=== PATIENT | female | born 1965 | race Caucasian/White ===

== ENCOUNTER → 2018-06-15 09:00 | Outpatient (CLI) | payer OTHER, SELFPAY | PROVIDERS: PCP Family Medicine; Visit Provider Internal Medicine Interventional Cardiology | DX: R55 Syncope and collapse (principal); R00.0 Tachycardia, unspecified | CPT/HCPCS: 93228 ==

== ENCOUNTER → 2018-07-29 13:55 | Outpatient (BNVA) | payer OTHER, SELFPAY | PROVIDERS: PCP Family Medicine; Visit Provider Nurse Practitioner Adult Health | DX: G56.01 Carpal tunnel syndrome, right upper limb (principal); E11.9 Type 2 diabetes mellitus without complications | CPT/HCPCS: 95908; 99214 ==

== ENCOUNTER → 2018-07-30 10:48 | Outpatient (BNVA) | payer OTHER, SELFPAY | PROVIDERS: Visit Provider Psychiatry & Neurology Neurology | DX: R69 Illness, unspecified (principal) ==

== ENCOUNTER → 2018-08-03 13:14 | Outpatient (BNVA) | payer OTHER, SELFPAY | PROVIDERS: PCP Family Medicine; Referring Provider Family Medicine; Visit Provider Student in an Organized Health Care Education/Training Program | DX: M25.531 Pain in right wrist (principal); G56.01 Carpal tunnel syndrome, right upper limb | CPT/HCPCS: 99213; L3908 ==

== ENCOUNTER 2018-09-08 11:29 | Day surgery (SDC) | payer OTHER, SELFPAY ==
[2018-09-08 11:53] VITALS: BP 133/74; PULSE 99; RESP 20; TEMP 36.9; O2SAT 96
--- NOTE | 2018-09-08 11:53 | HOME_ITS ---
Home Ventilator Equipment Home care company [facility] Reason: Obstructive Sleep Apnea Make: Respironics Model: REMStar Mask type: Face mask Mask size: Medium Mode: BiPAP Settings: max/min 25/13 PS 4.0 Oxygen bleed in (lpm): 0 Condition: Good Date last checked: 09/08/18 Year of last sleep study: Compliance Daily Comments:
[2018-09-08] MEDS: Lactated Ringers 1,000 ML 80 ML IV (12:20)
[2018-09-08] MEDS: Lidocaine 1% Pres-Free 5 ML VIAL (12:53)
--- NOTE | 2018-09-08 12:59 | W.PM.DSUDISC ---
Discharge Plan Disposition Patient Disposition: HOME Condition: Good Discharge Details Attending Provider: Abdi Noble Primary Care Provider: Stephanie Romero Home Meds and New Rx's Prescriptions: New ibuprofen 600 mg tablet 600 mg PO TID PRNQty: 30 RF: 3 acetaminophen 500 mg capsule 1,000 mg PO Q8H PRN (Reason: pain) Qty: 90 RF: 0 hydrocodone-acetaminophen 5-325 mg tablet 1 tab PO Q6H PRN (Reason: pain) Qty: 4 RF: 0 Continue calcium carbonate-vitamin D3 1 EACH tablet 1 ea PO DAILY RF: 0 citalopram 20 MG tablet 20 mg PO HS RF: 0 topiramate [Topamax] 100 MG tablet 100 mg PO HS Qty: 90 RF: 3 esomeprazole magnesium [Nexium] 20 MG capsule,delayed release(DR/EC) 20 mg PO HS RF: 0 Discharge Instructions Stand Alone Forms: Real Neves Tunnel Release, Ran Bergman (DSU) Equipment/Supplies: Sling Activity:: Elevate Remove Dressings/Wound Care:: 48 hours Shower/Bathe:: 48 hours Diet:: As Tolerated Discharge Orders Discharge Orders: Discharge Order (Routine); Ordered 09/08/18 Ordered By: Abdi Noble DS: Diagnosis Discharge Diagnosis (1) Right carpal tunnel syndrome: Status: Acute
[2018-09-08 13:28] VITALS: BP 107/63; PULSE 73; RESP 20; TEMP 36.6; O2SAT 96
[2018-09-08] MEDS: HYDROcodone 5/Acetaminophen 325 TAB PO (13:40)
--- NOTE | 2018-09-11 02:55 | W.PM.OP ---
Date of service: 09/08/18 Time of Service: 17:55 Operative Note DATE OF PROCEDURE: 09/08/18 PRE-OP DIAGNOSIS: Right Carpal Tunnel Syndrome POST-OP DIAGNOSIS: same PROCEDURE: Right Endoscopic Carpal Tunnel Release SURGEON: Abdi Noble ANESTHESIA: MAC ESTIMATED BLOOD LOSS: 0 PATHOLOGY: none sent TOURNIQUET TIME: 8 COMPLICATIONS: None Patient was transported to: same day Patient's condition: stable Indications: I have seen Tess in clinic for symptoms of carpal tunnel syndrome. The numbness, tingling, and pain limited function. Clinical exam findings with nerve conduction tests confirmed the diagnosis of carpal tunnel syndrome. Nonoperative measures such as bracing, time, activity modifications had been tried but disability and pain persisted. I discussed carpal tunnel release with the patient. I reviewed the risks of the procedure to include, but not limited to, bleeding, infection, pain, stiffness, incomplete release, damage to nerves or vessels, persistent numbness, recurrence. Despite these risks, the patient elected to proceed. Findings: There was tightened carpal tunnel. This was dilated and released successfully with the endoscopic with increased space within the tunnel. The antebrachial fascia was released proximally freeing the median nerve at the wrist. Procedure Description: Tess was greeted in the preoperative holding area where the correct side was identified and marked. The consent was reviewed with the patient and signed. The history and physical was updated. All questions were answered. Tess was taken back to the operating room. The patient was placed into the supine position on the operating room table with the right arm on an arm board. A nonsterile tourniquet was placed high onto the arm. All bony prominences were well padded. Prophylactic antibiotics in the form of Cefazolin were administered. The right arm was then prepped with Chloraprep and draped in a standard fashion with stockinette and extremity drape. A timeout to confirm correct identity, side and site, procedure, allergies, anesthesia, and medical concerns was performed. The surgical site was marked in the volar wrist creases in line with the radial border of the fourth ray. This area was anesthetized with approximately 6cc of 1% Lidocaine. The limb was then exsanguinated with an Esmarch. The skin was incised with a 15 blade, approximately 1cm. The skin only was cut and the deeper tissue was dissected bluntly with a tenotomy scissor, avoiding passing nerve and venous structures. The fascia was penetrated and opened bluntly. A two-prong skin hook was placed under this proximal fascial edge. A series of hamate finders were used to identify and dilate the carpal tunnel. Synovial elevator was used to free synovial attachments to the underside of the transverse carpal ligament. My thumb was kept in the palm to renu the distal extent of the carpal tunnel and correctly position the hand. The Microaire endoscope was inserted without difficulty and without resistance. Excellent visualization showed horizontally running fibers of the transverse carpal ligament (TCL). The distal extent of the TCL was visualized and the end of the scope palpated with the thumb. The blade was elevated and withdrawn from distal to proximal. The TCL was split into two flaps. The endoscope was reinserted to confirm complete release and any remnant ligament was incised. The scope was withdrawn and the proximal aspect of the carpal tunnel was grossly inspected and appeared release with the median nerve visible. The antebrachial fascia at the level of the wrist was then freed from the overlying skin and then the underlying median nerve with blunt dissection. This was transected longitudinally for about 3cm proximal to the wrist incision. The wound was then irrigated with easy flow of irrigant distally and proximally. The incision was closed with a single 4-0 Nylon suture. The wound was dressed with Xeroform, Gauze, Kerlix and Jose. The tourniquet was deflated with the initial dressing and held with some pressure. Blood flow returned easily to all digits with capillary refill less than 2 seconds. The patient tolerated the procedure well and was returned to the Same Day Surgery area in a stable condition suffering no known complication.
== END 2018-09-08 14:58 | disposition home or self-care (01) ==
PROVIDERS: PCP Family Medicine; Visit Provider Student in an Organized Health Care Education/Training Program
PROC: 01N54ZZ Release Median Nerve, Percutaneous Endoscopic Approach (ICD-10-PCS; CPT 29848; principal; 2018-09-08 13:30)
DX: G56.01 Carpal tunnel syndrome, right upper limb (principal)
CPT/HCPCS: 29848; J0690; J2250; L3650

== ENCOUNTER → 2018-09-25 10:27 | Outpatient (BNVA) | payer OTHER, SELFPAY | PROVIDERS: PCP Family Medicine; Referring Provider Family Medicine; Visit Provider Student in an Organized Health Care Education/Training Program | DX: Z47.89 Encounter for other orthopedic aftercare (principal); G56.01 Carpal tunnel syndrome, right upper limb; E11.9 Type 2 diabetes mellitus without complications ==

== ENCOUNTER → 2018-10-30 10:06 | Outpatient (BNVA) | payer OTHER, SELFPAY | PROVIDERS: PCP Family Medicine; Referring Provider Family Medicine; Visit Provider Student in an Organized Health Care Education/Training Program | DX: Z47.89 Encounter for other orthopedic aftercare (principal); G56.01 Carpal tunnel syndrome, right upper limb ==

== ENCOUNTER → 2018-11-19 10:55 | Outpatient (BNVA) | payer OTHER, SELFPAY | PROVIDERS: PCP Family Medicine; Visit Provider Nurse Practitioner Adult Health | DX: G43.009 Migraine without aura, not intractable, without status migrainosus (principal); G43.109 Migraine with aura, not intractable, without status migrainosus; G56.01 Carpal tunnel syndrome, right upper limb | CPT/HCPCS: 99213 ==

== ENCOUNTER 2018-12-11 01:42 | Outpatient (CLI) | payer OTHER, SELFPAY ==
--- NOTE | 2018-12-11 15:11 | DI.MAMMO_ITS ---
SYMPTOM/DIAGNOSIS: SCREENING, Z12.31 MAMMOGRAMS: Mammograms were interpreted according to the usual protocol including computer analysis with CAD system, tomosynthesis and C view imaging. Comparison is made with prior examinations. Breast density, Category A. No suspicious masses or microcalcifications are seen. The nodular density in the upper outer quadrant of the left breast appears stable. Skin and axilla are unremarkable. IMPRESSION: No evidence for malignancy. Yearly mammography is recommended. Category 1. MQSA ASSESSMENT OF FINDINGS: Negative. Category 1. Patient will receive a letter notifying them of these results. BI-RAD category A. The breasts are almost entirely fatty.
== END 2018-12-11 02:02 ==
PROVIDERS: PCP Family Medicine; Visit Provider Family Medicine
DX: Z12.31 Encounter for screening mammogram for malignant neoplasm of breast (principal)
CPT/HCPCS: 77063; 77067

== ENCOUNTER 2019-01-05 08:59 | Day surgery (SDC) | payer OTHER, SELFPAY ==
[2019-01-05 09:19] VITALS: BP 105/62; PULSE 83; RESP 18; TEMP 37; O2SAT 93
[2019-01-05] MEDS: Lactated Ringers 1,000 ML 80 ML IV (09:50)
--- NOTE | 2019-01-05 10:32 | HOME_ITS ---
Home Ventilator Equipment Home care company [employer] Reason: Obstructive Sleep Apnea Make: Respironics Model: REMStar Mask type: Face mask Mask size: Medium Mode: BiPAP Settings: Max/min 25/13 PS 4.0 Oxygen bleed in (lpm): 0 Condition: Good Date last checked: 01/05/19 Year of last sleep study: Compliance Daily Comments:
--- NOTE | 2019-01-05 11:38 | W.PM.DSUDISC ---
Discharge Plan Disposition Patient Disposition: HOME Condition: Good Discharge Details Reason For Visit: R Carpal Tunnel Attending Provider: Abdi Noble Primary Care Provider: Stephanie Romero Home Meds and New Rx's Prescriptions: New hydrocodone-acetaminophen 5-325 mg tablet 1 tab PO Q4H PRN (Reason: pain) Qty: 8 RF: 0 Continued calcium carbonate-vitamin D3 1 EACH tablet 1 ea PO DAILY RF: 0 citalopram 20 MG tablet 20 mg PO HS RF: 0 glyburide 5 mg Tablet 5 mg PO HS RF: 0 pantoprazole [Protonix] 40 mg Tablet,Delayed Release (Dr/Ec) 40 mg PO HS RF: 0 topiramate [Topamax] 50 mg tablet 75 mg PO HS RF: 0 ibuprofen 600 mg tablet 600 mg PO TID PRNQty: 30 RF: 3 acetaminophen 500 mg capsule 1,000 mg PO Q8H PRN (Reason: pain) Qty: 90 RF: 0 Discharge Instructions Additional Instructions: Activity: You should keep the hand elevated as much as possible for the first few days. You may use the other fingers as tolerated but avoid trying to do too much too soon. You may perform light activities with the splint/brace in place. You may remove the brace as desired for comfort. You should not try any lifting or forceful gripping. Dressing/Cast: You may remove your dressings after 48 hours. The wound may then get wet. You should keep the wound covered with a light gauze dressing. Use the brace for comfort and to limit motion for the first week. Medications: - You should take Tylenol and Ibuprofen for baseline pain control. - You have Hydrocodone for breakthrough pain. - You may apply ice over the wrist. Follow-up: 7-10 days Referrals: Abdi Noble MD [ [facility] STAFF PHYSICIAN] - Equipment/Supplies: Brace Activity:: Elevate Remove Dressings/Wound Care:: 48 hours Shower/Bathe:: 48 hours Diet:: As Tolerated Discharge Orders Discharge Orders: Discharge Order (Routine); Ordered 01/05/19 Ordered By: Abid Noble DS: Diagnosis Discharge Diagnosis (1) Right carpal tunnel syndrome: Status: Acute
[2019-01-05] MEDS: HYDROcodone 5/Acetaminophen 325 TAB PO (12:14)
[2019-01-05 12:15] VITALS: BP 105/58; PULSE 74; RESP 18; TEMP 36.4; O2SAT 95
--- NOTE | 2019-01-06 09:14 | ROE_ITS ---
REPORT OF OPERATIVE PROCEDURE DATE OF SURGERY January 05, 2019 PREOPERATIVE DIAGNOSIS Right carpal tunnel syndrome. POSTOPERATIVE DIAGNOSIS Right carpal tunnel syndrome. SURGERY Open carpal tunnel release, right side. SURGEON Abdi Noble M.D. ANESTHESIA General. ESTIMATED BLOOD LOSS Minimal. COMPLICATIONS None. DISPOSITION The patient was awakened from anesthesia and taken to the PACU in stable condition. INDICATION FOR PROCEDURE Araceli is a 53-year-old who I had previously performed an endoscopic carpal tunnel release on the rig ht side. During her postoperative recovery, she never really noticed significant improvements. Some o f the symptoms did seem to get better, but she had persistent numbness, tingling and pain primarily o f the middle finger, but also the ring finger. She had intact sensation although it was still painful and tingling. We continued to give this some time, but she had no significant improvements. The symp toms were exacerbated with Tinel's and Phalen's at the level of the carpal tunnel. It was therefore d etermined that there was either likely nerve damage or an incomplete release of the initial procedure and therefore I recommended a revision surgery, this time being open. I discussed the risks of the procedure, to include bleeding, infection, pain, stiffness, damage to ne rves and vessels, continued symptoms. Despite these risks, she elected to proceed. PROCEDURE DESCRIPTION Araceli was greeted in the preoperative holding area. Her identity was confirmed and the correct side was identified and marked. The consent was reviewed with the patient and signed. The history and phys ical was updated. She was then taken back to the Operating Room. She was placed in the supine position. All bony promi nences were well padded. The right arm was placed onto the arm table. A nonsterile tourniquet was chris belinda high up on the right side. Prophylactic antibiotics in the form of cefazolin were given. A timeou t was performed for safe surgery. MAC anesthetic was started. The surgical field was anesthetized wit h 1% lidocaine. Unfortunately, she would not stay still during any part of the case. Anesthesia provi ezraKatya CRNA made the decision to make her a general anesthetic given her inability to l ay still. After the anesthetic had set up on the hand, the limb was exsanguinated and the tourniquet was inflated to 275 mmHg, where it stayed for 16 minutes. A longitudinal incision was made within the line of the thenar crease at the radial border of the fourth ray. This was a 2.5 cm incision made wi thin the base of the palm. It was focused slightly more distally given the concern for possible incom plete release of the distal extent of the of the transverse carpal ligament. The tissue was incised s harply through the palmar fascia. There was a significant amount of muscular seen in this area. It wa s swept off of the transverse carpal ligament. The transverse carpal ligament was identified. There w as no significant break in the transverse carpal ligament. It made be thinner than expected, but it w as still quite tight. A freer was able to be inserted underneath the transverse carpal ligament and t he transverse carpal ligament was incised completely from distal to proximal. The far extent both dis tally and proximally were investigated and any tight bands were released. The median nerve was visibl e. There was no significant hyperemia or signs of contusion to the nerve. The nerve was visible intac t. I did not follow it out to the complete branches of the digital nerves, but the branch to the comm on digital nerve branch to the ring finger and middle finger was easily identifiable and showed no si gns of damage. I did not cross the flexion crease, but I was able to elevate soft tissue and release the remainder of the transverse carpal ligament so that I was able to place a Pray easily on top of the median nerve and pass it both proximally and distally. There were no other signs of compression o n the median nerve. The wound was then thoroughly irrigated. The tourniquet was released. There was n o active bleeding to suggest arterial injury. The skin was then closed with #4-0 Nylon. The wound was dressed with Xeroform, 4x4s, Confirm and Jose wrap. She was placed into a removable wrist splint. At the end of the case, all counts were correct.
== END 2019-01-05 13:15 | disposition home or self-care (01) ==
PROVIDERS: PCP Family Medicine; Visit Provider Student in an Organized Health Care Education/Training Program
PROC: (CPT 64721; principal; 2019-01-05 10:45)
DX: G56.01 Carpal tunnel syndrome, right upper limb (principal)
CPT/HCPCS: 64721; J0690; J1885; J2250; J2405; L3908

== ENCOUNTER → 2019-01-13 11:03 | Outpatient (BNVA) | payer OTHER, SELFPAY | PROVIDERS: PCP Family Medicine; Referring Provider Family Medicine; Visit Provider Student in an Organized Health Care Education/Training Program | DX: G56.01 Carpal tunnel syndrome, right upper limb (principal); Z47.89 Encounter for other orthopedic aftercare ==

== ENCOUNTER → 2019-02-05 10:18 | Outpatient (BNVA) | payer OTHER, SELFPAY | PROVIDERS: PCP Family Medicine; Referring Provider Family Medicine; Visit Provider Student in an Organized Health Care Education/Training Program | DX: Z47.89 Encounter for other orthopedic aftercare (principal); G56.01 Carpal tunnel syndrome, right upper limb ==

== ENCOUNTER → 2019-05-10 08:33 | Outpatient (BNVA) | payer OTHER, SELFPAY | PROVIDERS: PCP Family Medicine; Visit Provider Nurse Practitioner Adult Health | DX: G43.709 Chronic migraine without aura, not intractable, without status migrainosus (principal); G43.109 Migraine with aura, not intractable, without status migrainosus; E11.9 Type 2 diabetes mellitus without complications; Z79.84 Long term (current) use of oral hypoglycemic drugs | CPT/HCPCS: 99213 ==

== ENCOUNTER → 2019-08-19 15:12 | Outpatient (BNVA) | payer OTHER, SELFPAY | PROVIDERS: PCP Family Medicine; Referring Provider Family Medicine; Visit Provider Nurse Practitioner Adult Health | DX: G43.109 Migraine with aura, not intractable, without status migrainosus (principal); G43.009 Migraine without aura, not intractable, without status migrainosus | CPT/HCPCS: 99213 ==

== ENCOUNTER → 2019-09-16 14:42 | Outpatient (BNVA) | payer OTHER, SELFPAY | PROVIDERS: PCP Family Medicine; Referring Provider Family Medicine; Visit Provider Nurse Practitioner Adult Health | DX: G43.709 Chronic migraine without aura, not intractable, without status migrainosus (principal); G43.109 Migraine with aura, not intractable, without status migrainosus | CPT/HCPCS: 99212; 99241; 96372 ==

== ENCOUNTER → 2019-09-29 13:20 | Outpatient (BNVA) | payer OTHER, SELFPAY | PROVIDERS: PCP Family Medicine; Referring Provider Family Medicine; Visit Provider Nurse Practitioner Adult Health | DX: G43.901 Migraine, unspecified, not intractable, with status migrainosus (principal); L29.9 Pruritus, unspecified; E11.9 Type 2 diabetes mellitus without complications | CPT/HCPCS: 99213; J1885; J2550; 96372 ==

== ENCOUNTER → 2019-12-02 14:47 | Outpatient (BNVA) | payer OTHER, SELFPAY | PROVIDERS: PCP Family Medicine; Referring Provider Family Medicine; Visit Provider Nurse Practitioner Adult Health | DX: G43.109 Migraine with aura, not intractable, without status migrainosus (principal); G43.709 Chronic migraine without aura, not intractable, without status migrainosus | CPT/HCPCS: 99213 ==

== ENCOUNTER 2019-12-03 08:39 | Outpatient (REF) | payer OTHER, SELFPAY ==
[2019-12-03 12:28] LABS: HCT 40.6 % (36.0-46.0); HGB 13.1 g/dL (12.0-15.5); Mean Corp. HGB Concentration 32.3 g/dL (32.0-36.0); Mean Corpuscular Hemoglobin 30.8 pg (27.0-33.0); Mean Corpuscular Volume 95.3 fL (80-95); Mean Platelet Volume 10.8 fL (8.0-11.0); Platelet Count 310 x1000/uL (130-400); RBC 4.26 m/cumm (4.00-5.20); RBC Distribution Width 13.5 % (11.7-14.6); White Blood Cell Count 8.93 k/cumm (4.4-10.8)
[2019-12-03 12:51] LABS: ALT 24 U/L (14-59); AST 14 U/L (15-37); Albumin 3.4 g/dL (3.4-5.0); Alkaline Phosphatase 84 U/L (46-116); Anion Gap 10.1 mmol/L (3-11); BUN 16 mg/dL (7-18); Bilirubin, Total 0.4 mg/dL (0.2-1.0); CO2 26.9 mmol/L (21.0-32.0); CREATININE 1.06 mg/dL (0.55-1.02); Calcium 8.7 mg/dL (8.5-10.1); Calculated LDL 93 mg/dL (<100); Chloride 108 mmol/L (98-107); Cholesterol 149 mg/dL (<200); Estimated GFR 53.62 (mL/min/1.73m2); Glucose 221 mg/dL (74-106); HDL Cholesterol 41 mg/dL (40-60); Potassium 4.4 mmol/L (3.5-5.1); Sodium 145 mmol/L (136-145); Total Protein 6.6 g/dL (6.4-8.2); Triglyceride 75 mg/dL (<150)
[2019-12-03 12:52] LABS: Hemoglobin A1C 7.4 % (3.8-5.6)
== END 2019-12-03 08:59 ==
LOC: NCHCN 08:39
PROVIDERS: PCP Family Medicine; Visit Provider Family Medicine
DX: Z00.00 Encounter for general adult medical examination without abnormal findings (principal); E11.9 Type 2 diabetes mellitus without complications; N28.9 Disorder of kidney and ureter, unspecified
CPT/HCPCS: 80053; 80061; 85027; 83036

== ENCOUNTER → 2020-06-08 15:04 | Outpatient (BNVA) | payer OTHER, SELFPAY | PROVIDERS: PCP Family Medicine; Referring Provider Family Medicine; Visit Provider Nurse Practitioner Adult Health | DX: G43.709 Chronic migraine without aura, not intractable, without status migrainosus (principal); G43.109 Migraine with aura, not intractable, without status migrainosus; E11.9 Type 2 diabetes mellitus without complications | CPT/HCPCS: 99213 ==

== ENCOUNTER 2021-01-24 02:19 | Outpatient (CLI) | payer OTHER, SELFPAY ==
--- NOTE | 2021-01-24 | DI.US_ITS ---
EXAM: US ABDOMEN CLINICAL HISTORY: RUQ ABD PAIN,R10.11 TECHNIQUE: Ultrasound of complete upper abdomen performed using standard protocol. COMPARISON: US PELVIS TRANSVAG from 07/08/2014 FINDINGS: There is no ascites evident. LIVER: Liver is enlarged and hyperechoic, indicating steatosis. There are no discrete focal hepatic lesions evident on these images. GALLBLADDER/BILIARY: There are no gallstones. No gallbladder wall edema nor pericholecystic fluid. The common hepatic duct isnot dilated, measuring 5mm at the level of alejandro hepatis. PANCREAS: There is no evidence of pancreatic mass nor dilatation of the pancreatic duct. SPLEEN: The spleen is not enlarged and there are no intrasplenic lesions evident. KIDNEYS:Kidneys exhibit normal size with no evidence of solid mass, calculus, nor hydronephrosis. No cortical cysts evident. ABDOMINAL AORTA: Not well visualized IVC: Not well visualized. IMPRESSION: 1. No evidence of cholelithiasis nor dilatation of the biliary tree. 2. Hepatomegaly. Also hepatic steatosis. 3. There is no ascites. Aorta and IVC were apparently difficult to visualize on this study. DATA REPOSITORY:
--- NOTE | 2021-01-24 08:42 | DI.MAMMO_ITS ---
EXAM: MG MAMMO SCREENING CLINICAL HISTORY: SCREENING,Z12.31. TECHNIQUE: Bilateral full field digital CC and MLO mammographic images were obtained with 3D tomosyn thesis and utilizing computer aided detection (CAD). COMPARISON: Prior mammograms dating back to 2011, the most recent being November 2008. FINDINGS: There are no CAD designations. There are no new spiculated masses nor malignant appearing microcalcification groups. There is no significant architectural distortion nor skin thickening-retraction. IMPRESSION: No radiographic evidence of malignancy. BI-RADS Category 1 - Negative Breast Density - Category A - Almost entirely fatty Breast density Category C or D implies that the patient has dense breast tissue. Dense breast tissue can make it harder to find cancer on a mammogram. Dense breast tissue is also associated with an incr eased risk of breast cancer. This information about the result of the mammogram report was provided to the patient to raise their awareness. Use this report when you speak with the patient about their risks for breast cancer, which includes their family history. At that time, you may recommend additional screening tests (Ultrasoun d or MRI) as these tests may add significant information. A negative radiographic report should not delay biopsy if a dominant or clinically suspicious mass is present. Up to ten percent of cancers are not identified on mammography. A negative report may reinforce clinical impression. Adenosis and dense breasts may obscure an underlying neoplasm. False positive reports average 6 to 10%. Patient will receive a letter notifying them of these results.
== END 2021-01-24 02:39 ==
PROVIDERS: PCP Family Medicine; Visit Provider Family Medicine
DX: R10.11 Right upper quadrant pain (principal); Z12.31 Encounter for screening mammogram for malignant neoplasm of breast; R16.0 Hepatomegaly, not elsewhere classified; K76.0 Fatty (change of) liver, not elsewhere classified
CPT/HCPCS: 77063; 77067; 76700

== ENCOUNTER → 2021-06-11 07:40 | Outpatient (BNVA) | payer OTHER, SELFPAY | PROVIDERS: PCP Family Medicine; Referring Provider Family Medicine; Visit Provider Nurse Practitioner Adult Health | DX: G43.109 Migraine with aura, not intractable, without status migrainosus (principal); G43.709 Chronic migraine without aura, not intractable, without status migrainosus | CPT/HCPCS: 99213 ==

== ENCOUNTER → 2021-07-24 07:13 | Outpatient (BNVA) | payer OTHER, SELFPAY | PROVIDERS: PCP Family Medicine; Referring Provider Family Medicine; Visit Provider Nurse Practitioner Adult Health | DX: G43.109 Migraine with aura, not intractable, without status migrainosus (principal); G43.709 Chronic migraine without aura, not intractable, without status migrainosus | CPT/HCPCS: 99213 ==

== ENCOUNTER 2022-03-28 16:02 | Emergency (ER) | payer OTHER, SELFPAY ==
[2022-03-28 16:14] VITALS: BP 126/65; PULSE 93; RESP 18; TEMP 36.4; O2SAT 99
--- NOTE | 2022-03-28 16:15 | DI.RAD_ITS ---
Exam(s) XR CHEST 2V PA LATERAL EXAM: XR CHEST 2V PA LATERAL CLINICAL HISTORY: Chest pain TECHNIQUE: 2D digital imaging was performed of the chest. Two images were obtained. PA and lateral views were obtained. COMPARISON: No exams were available for comparison FINDINGS: MEDIASTINUM: Normal. HEART: Normal. PULMONARY VASCULATURE: Normal. LUNGS: Clear. PLEURAL SPACE: No pleural effusion or pneumothorax. BONE:Within normal limits for the patient's age. OTHER FINDINGS:Normal. IMPRESSION: No acute pulmonary findings. DATA REPOSITORY: RADIATION DOSE DELIVERED:
--- NOTE | 2022-03-28 16:15 | RT.EKG_ITS ---
APPROVED REPORT Exam: Resting ECG Reason for Exam: chest pain Patient Location: E HR:95 bpm ECG Measurements Heart Rate 95 AXIS ME 150 P 73 QRSd 79 QRS 72 QT 338 T 44 QTc 425 Conclusion Sinus rhythm...normal P axis, V-rate 60- 99
[2022-03-28] MEDS: Ondansetron 4 MG/2 ML VIAL IVP (17:30)
[2022-03-28] MEDS: Normal Saline 1,000 ML 150 ML IV (17:32)
[2022-03-28 17:34] LABS: Abs Immature Grans 0.15 10^3/uL (0.0-0.06); Absolute Eosinophil Count 0.18 10^3/uL (0.0-0.7); Absolute Monocyte Count 1.62 10^3/uL (0.1-0.8); Absolute Neutrophil Count 17.85 10^3/uL (1.2-6.7); Basophils % 0.4; Eosinophils % 0.8; HCT 44.4 % (36.0-46.0); HGB 15.1 g/dL (11.2-15.7); Immature Grans % 0.7; Lymphocytes % 11.4; MCH 30.5 pg (27.0-33.0); MCV 90 fL (80-95); MPV 10.6 fL (8.0-11.0); Monocytes % 7.2; Neutrophils % 79.5; Platelet Count 353 10^3/uL (130-400); RBC 4.95 10^6/uL (3.93-5.22); RDW-SD 42.4 fL; WBC 22.45 10^3/uL (4.4-10.8)
[2022-03-28 17:36] LABS: Absolute Basophil Count 0.09 10^3/uL (0.0-0.2); Absolute Lymphocyte Count 2.56 10^3/uL (1.2-3.4)
[2022-03-28 17:47] LABS: ALT 45 U/L (14-59); AST 24 U/L (15-37); Albumin 4.1 g/dL (3.4-5.0); Alkaline Phosphatase 88 U/L (46-116); Anion Gap 9.6 mmol/L (3-11); BUN 16 mg/dL (7-18); Bilirubin, Total 0.5 mg/dL (0.2-1.0); CO2 29.4 mmol/L (21.0-32.0); CREATININE 1.1 mg/dL (0.55-1.02); Chloride 101 mmol/L (98-107); Estimated GFR 51.02 (mL/min/1.73m2); Glucose 116 mg/dL (74-106); Magnesium 1.8 mg/dL (1.8-2.4); PTT Activated 25.4 sec (21.0-27.5); Potassium 3.8 mmol/L (3.5-5.1); Prothrombin Time 10.1 sec (9.3-11.0); Sodium 140 mmol/L (136-145); Total Protein 8.1 g/dL (6.4-8.2); Troponin I < 50 ng/L (<or=60)
[2022-03-28 18:36] LABS: Diff Comment Agrees w/ Instrument; RBC Morphology Normal
[2022-03-28 18:37] LABS: Lipase 179 U/L (73-393)
--- NOTE | 2022-03-28 18:53 | DI.VRAD_ITS ---
PROCEDURE INFORMATION: Exam: XR Chest Exam date and time: 03/28/2022 6:36 PM Age: 56 years old Clinical indication: Pain; Chest pressure; Additional info: Chest pain TECHNIQUE: Imaging protocol: XR of the chest. Views: 2 views. COMPARISON: MRI - L UPPER JOINT WO CONT 01/03/2017 5:49 PM FINDINGS: Lungs: Unremarkable. No consolidation. Pleural spaces: Unremarkable. No pleural effusion. No pneumothorax. Heart/Mediastinum: Unremarkable. No cardiomegaly. Bones/joints: [id number]-[id number] degenerative thoracic spine features. IMPRESSION: 1. No acute findings. 2. Clear lungs and pleural space. 3. Normal heart size and mediastinal contour. 4. Degenerative thoracic spine features Dictated and Authenticated by: Srinivas Plascencia MD. Ordering:DARIN Cordero MD
--- NOTE | 2022-03-28 19:56 | ED.GENADUL_ITS ---
Discharge Plan Disposition Patient Disposition: HOME Condition: Improving Discharge Details Clinical Impression: Nausea & vomiting Primary Care Provider: Stephanie Romero ED Provider: Gil Rivera Home Meds and New Rx's Prescriptions: No Action mecobalamin (vitamin B12) 1,000 mcg tablet,chewable 1,000 mcg PO DAILY Aimovig Autoinjector 140 mg/mL auto-injector 140 mg subcut QMONTH Qty: 1 11RF calcium carbonate-vitamin D3 1 EACH tablet 1 ea PO DAILY citalopram 20 MG tablet 20 mg PO HS prochlorperazine maleate 5 mg tablet See Rx Instructions PO TID PRN (Reason: headaches) Qty: 30 2RF Label Comments: none for a long time Rx Instructions: Take 1-2 tablets every 8 hours as needed for headaches. pantoprazole [Protonix] 40 mg Tablet,Delayed Release (Dr/Ec) 40 mg PO HS glyburide 5 mg tablet 5 mg PO BID Januvia 100 mg tablet 100 mg PO DAILY Discharge Instructions Instructions: Acute Nausea and Vomiting (ED) Additional Instructions: Please drink clear liquids for the next 12 to 24 hours and slowly advance your diet as tolerated by nausea. You may use the provided nausea medication as instructed for any return of your nausea. If you have any new or significant worsening of symptoms please return to the emergency department for reassessment. There is an outpatient order for an ultrasound to further evaluate your abdominal pain. Please need to call the radiology department to arrange your ultrasound tomorrow morning and follow-up in the emergency department after your ultrasound for results and reassessment. Medical Decision Making Patient presenting to the emergency department for chief complaint of nausea vomiting that occurred approximately 1 hour after lunch today. She does state for the past 2 and half weeks she is had malaise and occasional body aches. She did remove some ticks around 2 and half weeks ago as well but denies any rash, joint pain joint swelling. She does state after vomiting she did start having some sternal chest pressure. Patient does have a pertinent past medical history to include diabetes, GERD, migraines, obesity and former smoker. Physical exam shows tenderness to the epigastrium and right upper quadrant otherwise unremarkable exam. We will plan on performing labs and giving patient IV fluids along with some Zofran. We will also give patient GI cocktail due to some perceived or suspected esophagitis. Also given that patient states tick bites we will plan on sending tickborne illness and Lyme panel. Physical exam though shows no carditis, cardiac murmur,rash, or other obvious findings consistent with Lyme disease. Please see physician interpretation for full interpreted the EKG but patient is in sinus rhythm with no acute ischemic findings noted. Review of labs show a leukocytosis that I feel is secondary to vomiting, CMP shows a slight increase of creatinine of 1.1 and glucose of 116 otherwise normal LFTs, lipase is 179, initial troponin is negative. Reassessed patient and she did state some improvement after Zofran and GI cocktail. Given history we will plan on doing delta troponin. Delta troponin is also nondetectable, patient reassessed and states resolution of symptoms. Patient was p.o. challenge and did state that she felt fine drinking water but crackers did slightly upset her stomach. Prior to discharge CT imaging became available and given the right upper quadrant pain we will plan on performing CT imaging. CT imaging shows some nonspecific findings consistent with some enteritis which also may be causing her nausea and vomiting. Otherwise CT showed no acute or surgical findings. We will plan on discharging patient with outpatient ultrasound ordered for further evaluation of gallbladder given that patient did report with further discussion that this is happened a couple times. Also did discuss with patient beginning antibiotics for potential Lyme disease given her malaise and other vague symptoms with recent tick bites. After discussion of this with patient she states that she would prefer to wait for lab testing or for any new or worsening symptoms. Patient to return tomorrow for ultrasound imaging and needs then return to emergency department for reassessment. After discussion of diagnosis and plan of care patient has no further needs, questions, or concerns and states clear understanding to return to the emergency department for any worsening symptoms. Imaging Data Radiologic Study: Imaging: CT Scan Radiologist's impression: IMPRESSION: 1. Minor fatty stranding of the mesenteric root and some scattered subcentimeter lymph nodes. This is nonspecific. This might represent sequela of a mild small bowel enteritis. 2. No acute biliary tract findings. 3. Unremarkable pancreas. 4. Fatty liver change. 5. No acute renal pathology. 6. Previous hysterectomy. 7. No free fluid in the abdomen or pelvis. No free air. Lab Data Lab results reviewed: Yes I reviewed the patient's lab results. HPI General Mode of arrival: ambulatory . Date/Time Provider Initiated Documentation: 03/28/22 16:04 . Limitations to Documentation: no limitations . Information obtained by: patient and RN notes reviewed . History of Present Illness 56 year old F presents to the emergency department with the chief complaint of Acute nausea and vomiting with epigastric and chest pain, described as moderate, with intensity rated at 3. Quality is described as aching, and is localized to the chest and abdomen. Patient reports no radiation. Patient started experiencing this hour(s) (4) and it has been constant. No relieving factors improve symptom(s), No exacerbating factors reported . Patient notes loss of appetite, malaise and nausea/vomiting. Patient did receive the following treatments prior to arrival, none Related Data Home Medications Medication Instructions Recorded Confirmed calcium carbonate 600 mg-vitamin 1 ea PO DAILY 07/13/14 03/28/22 D3 5 mcg (200 unit) tablet citalopram 20 mg tablet 20 mg PO HS 11/11/16 03/28/22 pantoprazole 40 mg tablet,delayed 40 mg PO HS 01/01/19 03/28/22 release (Protonix) prochlorperazine maleate 5 mg See Rx Instructions PO TID PRN 06/12/20 03/28/22 tablet headaches #30 tabs glyburide 5 mg tablet 5 mg PO BID 06/11/21 03/28/22 mecobalamin (vitamin B12) 1,000 1,000 mcg PO DAILY 06/11/21 03/28/22 mcg chewable tablet erenumab-aooe 140 mg/mL 140 mg subcut QMONTH #1 mL 07/24/21 03/28/22 subcutaneous auto-injector (Aimovig Autoinjector) sitagliptin 100 mg tablet (Januvia) 100 mg PO DAILY 03/28/22 03/28/22 Previous Rx's Medication Instructions Recorded prochlorperazine maleate 5 mg See Rx Instructions PO TID PRN 06/12/20 tablet headaches #30 tabs erenumab-aooe 140 mg/mL 140 mg subcut QMONTH #1 mL 07/24/21 subcutaneous auto-injector (Aimovig Autoinjector) Allergies Allergy/AdvReac Type Severity Reaction Status Date / Time Sulfa (Sulfonamide Allergy Severe Anaphylaxsi Unverified 03/28/22 16:24 Antibiotics) s sumatriptan AdvReac Severe Headache Unverified 03/28/22 16:24 ciprofloxacin [From Cipro] AdvReac Intermediate Diarrhea Unverified 03/28/22 16:24 ciprofloxacin HCl AdvReac Intermediate Diarrhea Unverified 03/28/22 16:24 [From Cipro] General Stated Complaint: Chest Pain BRIAN: 2 Review of Systems Constitutional Constitutional: Reports body ache(s), Denies chills, Denies fever(s) and Reports malaise Cardiovascular Cardiovascular: Reports as per HPI, Reports chest pain, Denies chest pain with activity, Denies syncope, Denies irregular heart rhythm, Denies palpitations and Denies dyspnea Respiratory Respiratory: Denies cough, Denies hemoptysis and Denies dyspnea Gastrointestinal Gastrointestinal: Reports abdominal pain, Reports belching, Reports bloating, Reports nausea and Reports vomiting Musculoskeletal Musculoskeletal: Denies arthralgias and Denies joint swelling Integumentary/Breasts Skin/Breast: Denies erythema and Denies rash Neurologic Neurologic: Denies syncope Psychiatric Psychiatric: Denies anxiety Endocrine Endocrine: Denies cold intolerance, Denies heat intolerance and Denies palpitations PFSH All Active Problems (Updated 03/28/22 @ 21:33 by Gil Rivera NP) Nausea & vomiting (Acute) Lymphadenopathy (Acute) Abnormal auditory perception (Acute) Migraine headache with aura (Acute) Headache, chronic migraine without aura (Acute) History of carpal tunnel surgery of right wrist (Acute) DOS: 09/08/18 Dr. 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 Do you feel safe at home: Yes Do you feel safe in your relationship?: Yes Exam Const General: cooperative Orientation: alert, awake and oriented x3 Resp Effort & Inspection: normal respiratory effort and able to speak in complete sentences Auscultation: clear to auscultation bilaterally Cardio Rate: regular rate Rhythm: regular rhythm Heart Sounds: S1 normal and S2 normal GI Inspection: obesity Palpation: soft, not firm, no guarding, no masses, no pulsatile masses, not rigid and tender in the epigastrum and in the RUQ Auscultation: normal bowel sounds Back/Spine/Pelvis Back: no CVA tenderness Skin Rashes: no rashes Neuro General: patient alert, patient awake, patient oriented x3, gait normal and moves all extremities Course Vital Signs Vital signs: Vital Signs Temperature 36.4 C L 03/28/22 16:14 Pulse 93 H 03/28/22 16:14 Respiratory Rate 18 03/28/22 16:14 Blood Pressure 126/65 03/28/22 16:14 Pulse Oximetry 99 03/28/22 16:14 Temperature 36.4 C L 03/28/22 16:14 Temperature Source Skin 03/28/22 16:14 Pulse 93 H 03/28/22 16:14 Respiratory Rate 18 03/28/22 16:14 Respiratory Effort 03/28/22 17:01 Respiratory Depth Normal 03/28/22 17:01 Respiratory Pattern Normal 03/28/22 17:01 Blood Pressure 126/65 03/28/22 16:14 Blood Pressure Position Sitting 03/28/22 16:14 Pulse Oximetry 99 03/28/22 16:14 Oxygen Delivery Method Room Air 03/28/22 16:14 Oxygen Flow Rate 0 03/28/22 16:14 Pain Level 3 03/28/22 16:14 Lab/Test Results Lab/Test Results: Laboratory Tests Range/Units 03/28/22 03/28/22 03/28/22 17:25 17:25 17:25 WBC (4.4-10.8) 10^3/uL 22.45 H RBC (3.93-5.22) 10^6/uL 4.95 Hgb (11.2-15.7) g/dL 15.1 Hct (36.0-46.0) % 44.4 MCV (80-95) fL 90 MCH (27.0-33.0) pg 30.5 MCHC (32.0-36.0) % 34.0 RDW (11.7-14.6) % 13.0 Plt Count (130-400) 10^3/uL 353 MPV (8.0-11.0) fL 10.6 Immature Gran % 0.7 Neutrophils % 79.5 Lymphocytes % 11.4 Monocytes % 7.2 Eosinophils % 0.8 Basophils % 0.4 Nucleated RBC % (0.0-0.3) % 0.0 Absolute Neutrophils (1.2-6.7) 10^3/uL 17.85 H Absolute Lymphocytes (1.2-3.4) 10^3/uL 2.56 Absolute Monocytes (0.1-0.8) 10^3/uL 1.62 H Absolute Eosinophils (0.0-0.7) 10^3/uL 0.18 Absolute Basophils (0.0-0.2) 10^3/uL 0.09 RBC Morphology Normal PT (9.3-11.0) sec 10.1 INR (0.9-1.1) 1.0 APTT (21.0-27.5) sec 25.4 Sodium (136-145) mmol/L 140 Potassium (3.5-5.1) mmol/L 3.8 Chloride (98-107) mmol/L 101 Carbon Dioxide (21.0-32.0) mmol/L 29.4 Anion Gap (3-11) mmol/L 9.6 BUN (7-18) mg/dL 16 Creatinine (0.55-1.02) mg/dL 1.1 H Estimated GFR/1.73 m2 (mL/min/1.73m2) 51.02 Glucose (74-106) mg/dL 116 H Calcium (8.5-10.1) mg/dL 9.0 Magnesium (1.8-2.4) mg/dL 1.8 Total Bilirubin (0.2-1.0) mg/dL 0.5 AST (15-37) U/L 24 ALT (14-59) U/L 45 Alkaline Phosphatase (46-116) U/L 88 Troponin I (<or=60) ng/L < 50 Total Protein (6.4-8.2) g/dL 8.1 Albumin (3.4-5.0) g/dL 4.1 Lipase (73-393) U/L Range/Units 03/28/22 17:25 WBC (4.4-10.8) 10^3/uL RBC (3.93-5.22) 10^6/uL Hgb (11.2-15.7) g/dL Hct (36.0-46.0) % MCV (80-95) fL MCH (27.0-33.0) pg MCHC (32.0-36.0) % RDW (11.7-14.6) % Plt Count (130-400) 10^3/uL MPV (8.0-11.0) fL Immature Gran % Neutrophils % Lymphocytes % Monocytes % Eosinophils % Basophils % Nucleated RBC % (0.0-0.3) % Absolute Neutrophils (1.2-6.7) 10^3/uL Absolute Lymphocytes (1.2-3.4) 10^3/uL Absolute Monocytes (0.1-0.8) 10^3/uL Absolute Eosinophils (0.0-0.7) 10^3/uL Absolute Basophils (0.0-0.2) 10^3/uL RBC Morphology PT (9.3-11.0) sec INR (0.9-1.1) APTT (21.0-27.5) sec Sodium (136-145) mmol/L Potassium (3.5-5.1) mmol/L Chloride (98-107) mmol/L Carbon Dioxide (21.0-32.0) mmol/L Anion Gap (3-11) mmol/L BUN (7-18) mg/dL Creatinine (0.55-1.02) mg/dL Estimated GFR/1.73 m2 (mL/min/1.73m2) Glucose (74-106) mg/dL Calcium (8.5-10.1) mg/dL Magnesium (1.8-2.4) mg/dL Total Bilirubin (0.2-1.0) mg/dL AST (15-37) U/L ALT (14-59) U/L Alkaline Phosphatase (46-116) U/L Troponin I (<or=60) ng/L Total Protein (6.4-8.2) g/dL Albumin (3.4-5.0) g/dL Lipase (73-393) U/L 179
--- NOTE | 2022-03-28 20:30 | DI.CT_ITS ---
Exam(s) CT ABDOMEN PELVIS WO EXAM: CT ABDOMEN PELVIS WO CLINICAL HISTORY: RUQ pain. TECHNIQUE: Imaging Protocol: Axial computed tomography images with coronal and sagittal reformatted images were created and reviewed. COMPARISON: No exams were available for comparison FINDINGS: ABDOMEN: Lung Bases: Normal where visualized. Liver: There is diffuse fatty infiltration of the liver. The liver measures 20 cm long. No measurab le mass. Gallbladder and biliary tract: No radiodense calculus or biliary ductal dilation. Pancreas: Normal density, no abnormal calcifications or inflammatory process. Spleen: Normal. Kidneys: Normal size, contour and axis.No radiodense stones or obstructive uropathy. No masses seen. Adrenal glands: No mass is seen. Lymph nodes: Within normal limits. Abdominal Aorta: Abdominal portion non-dilated. Atherosclerosis is present. PELVIS: Bladder:Symmetric distention, no gross wall thickening. Bowel: No obstruction or bowel wall thickening. No evidence of appendicitis. Peritoneal cavity: No ascites, collection or mesenteric inflammatory response. No free air. Reproductive organs: Status post hysterectomy. Bones: Within normal limits. Soft Tissues: Within normal limits. IMPRESSION: 1. No acute abdominal pelvic process. 2. Hepatomegaly and hepatic steatosis. RADIATION DOSE DELIVERED: 1,357.7mGy.cm Total DLP DATA REPOSITORY: All CT scans at this facility are submitted to the National Radiology Data Registry (NRDR) Dose Index Registry (DIR) with the [employer] (ACR). RADIATION OPTIMIZATION: All CT scans at this facility use at least one of these dose optimization te chniques: automated exposure control; mA and/or kV adjustment per patient size (includes targeted exa ms where dose is matched to clinical indication); or iterative reconstruction.
[2022-03-28 20:44] LABS: Troponin I < 50 ng/L (<or=60)
--- NOTE | 2022-03-28 21:29 | DI.VRAD_ITS ---
PROCEDURE INFORMATION: Exam: CT Abdomen And Pelvis Without Contrast Exam date and time: 03/28/2022 8:47 PM Age: 56 years old Clinical indication: Abdominal pain; Localized; Right upper quadrant (ruq); Prior surgery; Surgery date: 6+ months; Surgery type: Hysterectomy; Additional info: Ruq pain TECHNIQUE: Imaging protocol: Computed tomography of the abdomen and pelvis without contrast. Radiation optimization: All CT scans at this facility use at least one of these dose optimization techniques: automated exposure control; mA and/or kV adjustment per patient size (includes targeted exams where dose is matched to clinical indication); or iterative reconstruction. COMPARISON: US ABDOMEN 01/24/2021 8:15 AM FINDINGS: Lungs: Lung bases are clear. Pleural spaces: No pleural effusion. Heart: Normal heart size. No pericardial effusion. No coronary artery atherosclerotic calcium evident. Liver: Moderate fatty liver infiltration. No focal hepatic disease. Gallbladder and bile ducts: No gallstones. No gallbladder wall thickening or biliary dilatation. Pancreas: The pancreas is normal in contour and attenuation. Spleen: The spleen is normal in size, contour and attenuation. Adrenal glands: The adrenal glands are normal in size and contour bilaterally. Kidneys and ureters: The kidneys bilaterally are unremarkable. Normal attenutation. No hydronephrosis. No calculi. Stomach and bowel: Gastric morphology is unremarkable. No edema. No gastric outlet obstruction. Small hiatal hernia. No acute edema.Small bowel loops are normal in course and caliber. There is no mucosal edema or bowel wall thickening. No obstructive features.The colon contains formed fecal material. There is no bowel wall thickening. No inflammatory features. No obstruction. Appendix: No evidence of appendicitis. Intraperitoneal space: No free fluid or free air. There is minor mesenteric root fatty stranding or increased attenuation. This could represent minor edema. There are some scattered subcentimeter lymph nodes in this region. This type of finding can be seen with an enteritis. Vasculature: Unremarkable appearance of abdominal aorta and inferior vena cava Lymph nodes: Mesenteric root subcentimeter lymph nodes are noted which are nonspecific. These might represent sequela of previous small bowel enteritis. A precaval retroperitoneal lymph node is mildly enlarged measuring 17 x 11 mm. Series 5, image 241. This is nonspecific. Urinary bladder: Unremarkable as visualized. Reproductive: Previous hysterectomy. No adnexal mass or cyst. Bones/joints: Degenerative thoracolumbar spine changes. No compression fractures. Soft tissues: Minor fat containing umbilical hernia. No acute strangulation IMPRESSION: 1. Minor fatty stranding of the mesenteric root and some scattered subcentimeter lymph nodes. This is nonspecific. This might represent sequela of a mild small bowel enteritis. 2. No acute biliary tract findings. 3. Unremarkable pancreas. 4. Fatty liver change. 5. No acute renal pathology. 6. Previous hysterectomy. 7. No free fluid in the abdomen or pelvis. No free air. Dictated and Authenticated by: Srinivas Plascencia MD. Ordering:DARIN Cordero MD
[2022-03-28 21:47] VITALS: BP 112/31; BP 123/67; PULSE 69; PULSE 74; RESP 18; RESP 19; O2SAT 94; O2SAT 99
[2022-03-31 12:07] LABS: Anaplasma phagocytophilum Negative (Negative); B. miyamotoi PCR Negative (Negative); Babesia divergens/MO-1 Negative (Negative); Babesia duncani Negative (Negative); Babesia microti Negative (Negative); Ehrlichia chaffeensis Negative (Negative); Ehrlichia ewingii/canis Negative (Negative); Ehrlichia muris eauclairensis Negative (Negative)
[2022-04-01 09:59] LABS: Lyme Ab w Rflx to Lyme Confirm Negative (Negative)
== END 2022-03-28 21:48 | disposition home or self-care (01) ==
PROVIDERS: Emergency Provider Nurse Practitioner Family; PCP Family Medicine
DX: R11.2 Nausea with vomiting, unspecified (principal); R07.9 Chest pain, unspecified; R10.11 Right upper quadrant pain
CPT/HCPCS: 80053; 83690; 87798; 93005; 96374; 99285; 71046; 74176; 83735; 84484; 85025; 85610; 85730; 86618; 93010; 99284; J2405

== ENCOUNTER 2022-04-01 08:25 | Emergency (ER) | payer OTHER, SELFPAY ==
[2022-04-01 08:28] VITALS: BP 123/71; PULSE 74; RESP 16; TEMP 36.4; O2SAT 97
--- NOTE | 2022-04-01 08:41 | ED.GENADUL_ITS ---
Discharge Plan Disposition Patient Disposition: HOME Condition: Stable Discharge Details Clinical Impression: Nausea & vomiting Primary Care Provider: Stephanie Romero ED Provider: Jose Echevarria Home Meds and New Rx's Prescriptions: Continued mecobalamin (vitamin B12) 1,000 mcg tablet,chewable 1,000 mcg PO DAILY Aimovig Autoinjector 140 mg/mL auto-injector 140 mg subcut QMONTH Qty: 1 11RF calcium carbonate-vitamin D3 1 EACH tablet 1 ea PO DAILY citalopram 20 MG tablet 20 mg PO HS prochlorperazine maleate 5 mg tablet See Rx Instructions PO TID PRN (Reason: headaches) Qty: 30 2RF Label Comments: none for a long time Rx Instructions: Take 1-2 tablets every 8 hours as needed for headaches. pantoprazole [Protonix] 40 mg Tablet,Delayed Release (Dr/Ec) 40 mg PO HS glyburide 5 mg tablet 5 mg PO BID Januvia 100 mg tablet 100 mg PO DAILY Discharge Instructions Instructions: Enteritis (ED) Additional Instructions: Your ultrasound showed a normal gallbladder. Given your recurrent symptoms follow up with your primary care provider within 1-2 weeks if you feel more ill, have severe worsening pain or persistent vomit return to the emergency department Medical Decision Making 56 yo female comes in after she had an u/s done for abdominal pain and n/v 3-4 days ago. She was seen in the ED and had a reassuring workup, diagnosed with possible enteritis and discharged with plan for follow up u/s. She currently denies any pain, no n/v for 2 days now. She has had 3 episodes like this over the past 2-3 weeks as well. She has no abdominal tenderness on exam and feels well without complaints. Per u/s tech normal gallbladder, mild hepatomegaly with fatty liver which was seen on the CT as well. Given no symptoms now and reassuring u/s she is stable for d/c. I did advise to f/u with her pcp given she has had 3 episodes like this and return precautions given Differential Diagnosis Differential Diagnosis: ibd, ibs, food related illness HPI General Mode of arrival: ambulatory . Date/Time Provider Initiated Documentation: 04/01/22 08:28 . Limitations to Documentation: no limitations . Information obtained by: patient . History of Present Illness 56 year old F presents to the emergency department with the chief complaint of abdominal pain, n/v, described as moderate, Patient started experiencing this day(s) (4) and it has been now resolved. No exacerbating factors reported . Patient notes no other symptoms.. Related Data Home Medications Medication Instructions Recorded Confirmed calcium carbonate 600 mg-vitamin 1 ea PO DAILY 07/13/14 04/01/22 D3 5 mcg (200 unit) tablet citalopram 20 mg tablet 20 mg PO HS 11/11/16 04/01/22 pantoprazole 40 mg tablet,delayed 40 mg PO HS 01/01/19 04/01/22 release (Protonix) prochlorperazine maleate 5 mg See Rx Instructions PO TID PRN 06/12/20 04/01/22 tablet headaches #30 tabs glyburide 5 mg tablet 5 mg PO BID 06/11/21 04/01/22 mecobalamin (vitamin B12) 1,000 1,000 mcg PO DAILY 06/11/21 04/01/22 mcg chewable tablet erenumab-aooe 140 mg/mL 140 mg subcut QMONTH #1 mL 07/24/21 04/01/22 subcutaneous auto-injector (Aimovig Autoinjector) sitagliptin 100 mg tablet (Januvia) 100 mg PO DAILY 03/28/22 04/01/22 Previous Rx's Medication Instructions Recorded prochlorperazine maleate 5 mg See Rx Instructions PO TID PRN 06/12/20 tablet headaches #30 tabs erenumab-aooe 140 mg/mL 140 mg subcut QMONTH #1 mL 07/24/21 subcutaneous auto-injector (Aimovig Autoinjector) Allergies Allergy/AdvReac Type Severity Reaction Status Date / Time Sulfa (Sulfonamide Allergy Severe Anaphylaxsi Unverified 04/01/22 08:32 Antibiotics) s sumatriptan AdvReac Severe Headache Unverified 04/01/22 08:32 ciprofloxacin [From Cipro] AdvReac Intermediate Diarrhea Unverified 04/01/22 08:32 ciprofloxacin HCl AdvReac Intermediate Diarrhea Unverified 04/01/22 08:32 [From Cipro] General Stated Complaint: Recheck BRIAN: 5 Review of Systems All systems reviewed & are unremarkable except as noted in HPI and below Constitutional Constitutional: Denies chills and Denies fever(s) Cardiovascular Cardiovascular: Denies chest pain and Denies dyspnea Respiratory Respiratory: Denies cough and Denies dyspnea Integumentary/Breasts Skin/Breast: Denies rash PFSH All Active Problems (Updated 04/01/22 @ 08:42 by Jose Echevarria MD) Nausea & vomiting (Acute) Lymphadenopathy (Acute) Abnormal auditory perception (Acute) Migraine headache with aura (Acute) Headache, chronic migraine without aura (Acute) History of carpal tunnel surgery of right wrist (Acute) DOS: 09/08/18 Dr. 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 Do you feel safe at home: Yes Do you feel safe in your relationship?: Yes Exam Const General: no acute distress Orientation: alert HENMT Head: normal to inspection Ears: external ears normal General nose exam: external nose normal Mouth: moist mucous membranes Eyes General: appearance normal, both eyes and all related structures Neck Neck: normal visual inspection Resp Effort & Inspection: normal respiratory effort and able to speak in complete sentences Cardio Rate: regular rate GI Palpation: soft and nontender Skin General skin exam: no rashes or lesions noted Neuro General: patient alert and patient oriented x3 Extrem General: normal to inspection Psych Mental Status: mental status grossly normal Course Vital Signs Vital signs: Vital Signs Temperature 36.4 C L 04/01/22 08:28 Pulse 74 04/01/22 08:28 Respiratory Rate 16 04/01/22 08:28 Blood Pressure 123/71 04/01/22 08:28 Pulse Oximetry 97 04/01/22 08:28 Temperature 36.4 C L 04/01/22 08:28 Temperature Source Temporal Artery Scan 04/01/22 08:28 Pulse 74 04/01/22 08:28 Respiratory Rate 16 04/01/22 08:28 Respiratory Effort 04/01/22 08:31 Blood Pressure 123/71 04/01/22 08:28 Blood Pressure Position Sitting 04/01/22 08:28 Pulse Oximetry 97 06/06/22 08:28 Oxygen Delivery Method Room Air 04/01/22 08:28 Oxygen Flow Rate 0 04/01/22 08:28 Pain Level 0 04/01/22 08:28
== END 2022-04-01 08:47 | disposition home or self-care (01) ==
PROVIDERS: Emergency Provider Emergency Medicine; PCP Family Medicine
DX: R11.2 Nausea with vomiting, unspecified (principal); Z71.2 Person consulting for explanation of examination or test findings
CPT/HCPCS: 99281

== ENCOUNTER 2022-12-06 18:20 | Outpatient (REF) | payer OTHER, SELFPAY ==
[2022-12-08 11:36] LABS: COVID-19 RT-PCR UVMMC Result Negative (Negative)
== END 2022-12-06 18:21 | disposition home or self-care (01) ==
LOC: LBN 18:20
PROVIDERS: PCP Family Medicine; Visit Provider Physician Assistant Medical
DX: J02.9 Acute pharyngitis, unspecified (principal); R05.8 Other specified cough; H92.03 Otalgia, bilateral; Z20.822 Contact with and (suspected) exposure to COVID-19
CPT/HCPCS: U0003; 87070

== ENCOUNTER 2022-12-12 10:21 | Outpatient (CLI) | payer OTHER, SELFPAY ==
--- NOTE | 2022-12-12 | DI.RAD_ITS ---
Exam(s) XR SOFT TISSUE NECK EXAM: XR SOFT TISSUE NECK CLINICAL HISTORY: SORE THROAT, J02.9, ? EPIGLOTTITIS. TECHNIQUE: 2D digital imaging was performed. COMPARISON: No exams were available for comparison FINDINGS: Two views with soft tissue technique The epiglottis is not swollen. There is no obvious prevertebral soft tissue swelling. Airways not distended. IMPRESSION: No obvious findings. If clinically indicated contrast infused CT scan can be performed to determine if there findings which would not be visible on this type study which would include tonsillar or retr opharyngeal abscess. DATA REPOSITORY: RADIATION DOSE DELIVERED:
--- NOTE | 2022-12-12 | DI.CT_ITS ---
Exam(s) CT NECK W EXAM: CT NECK W INDICATION: SORE THROAT, J02.9,? ABSCESS OR EPIGLOTTIS. COMPARISON: No exams were available for comparison TECHNIQUE: Intravenous contrast: Omnipaque 350-100 mL FINDINGS: VISUALIZED PARANASAL SINUSES: Unremarkable. NASOPHARYNX: Unremarkable ORODENTAL: Unremarkable. OROPHARYNX: There are to calcifications in the right palatine tonsil consistent with tonsilliths. Ho wever, there is no evidence of tonsillar abscess on either side. Uvula is midline and not swollen. There is no retropharyngeal swelling. HYPOPHARYNX: Unremarkable. Valleculae and epiglottis and aryepiglottic folds appear normal. VOCAL CORDS: Unremarkable. No masses evident. Subglottic airway appears unremarkable. THYROID GLAND: Unremarkable. Normal size and no obvious nodules. SALIVARY GLANDS: Unremarkable. No significant findings in the parotid and submandibular glands. LYMPH NODES: There is no adenopathy evident in the neck and supraclavicular regions. OTHER: Chronic disc space narrowing in the lower cervical spine. No fractures. No facet malalignmen t. VISUALIZED LUNG APICES: No significant findings. IMPRESSION: 1. No evidence of epiglottic swelling. Airway appears intact. 2. Calcified tonsilliths are noted in the right palatine tonsil. There is no evidence of tonsil abs cess. There is no lymphadenopathy 3. No significant retropharyngeal swelling nor abnormality of the tissues of the nasopharynx and hyp opharynx. RADIATION DOSE DELIVERED: 593.95mGy.cm Total DLP 593.95mGy.cm Total DLP DATA REPOSITORY: All CT scans at this facility are submitted to the National Radiology Data Registry (NRDR) Dose Index Registry (DIR) with the [employer] (ACR). RADIATION OPTIMIZATION: All CT scans at this facility use at least one of these dose optimization te chniques: automated exposure control; mA and/or kV adjustment per patient size (includes targeted exa ms where dose is matched to clinical indication); or iterative reconstruction.
[2022-12-12 12:13] LABS: CREATININE 1.1 mg/dL (0.55-1.02); Estimated GFR 57.88 (mL/min/1.73m2)
[2022-12-12] MEDS: Omnipaque 350 MG/ML 100 ML BTL IJ (13:33)
[2022-12-12] MEDS: Normal Saline - Diluent 50 ML VIAL IJ (13:34)
== END 2022-12-12 10:41 ==
PROVIDERS: PCP Family Medicine; Visit Provider Physician Assistant Medical
DX: J02.9 Acute pharyngitis, unspecified (principal)
CPT/HCPCS: 70491; 70360; 82565; J3490

== ENCOUNTER 2022-12-27 16:24 | Outpatient (REF) | payer OTHER, SELFPAY ==
--- NOTE | 2022-12-27 14:40 | PAPFT_PTH ---
PATIENT: Araceli Rios LOC: [facility]#:[id number] AGE/SX: 57/F ROOM: RE12/27/[address]: Precious Arango : 1965 BED: DIS: 12/27/2022 SPEC #: [id number] RECD: 12/30/22 13:14 STATUS: CYNDEE REAl #: [id number] VICENTE: 12/27/22 14:[address]: Precious Arango DEPT: [facility] Cytology RECD BY: Cristin Conklin ENTERED: 12/30/22 13:14 SP TYPE: PAPFT OTHR DR: Stephanie Romero Tissues: 1 - CX/ENDOCX FOR PAP SMEARS Procedures: PAP THIN PREP/UVM Screening HPV DNA PROBE Comments: [id number]
[2022-12-27 21:14] LABS: ALT 36 U/L (14-59); AST 23 U/L (15-37); Albumin 3.8 g/dL (3.4-5.0); Alkaline Phosphatase 103 U/L (46-116); Anion Gap 8.3 mmol/L (3-11); BUN 15 mg/dL (7-18); Bilirubin, Total 0.4 mg/dL (0.2-1.0); CO2 30.7 mmol/L (21.0-32.0); CREATININE 1.2 mg/dL (0.55-1.02); Calcium 9.2 mg/dL (8.5-10.1); Chloride 104 mmol/L (98-107); Cholesterol 186 mg/dL (<200); Estimated GFR 52.14 (mL/min/1.73m2); Glucose 306 mg/dL (74-106); HDL Cholesterol 36 mg/dL (40-60); Potassium 4.3 mmol/L (3.5-5.1); Sodium 143 mmol/L (136-145); Total Protein 7.1 g/dL (6.4-8.2); Triglyceride 469 mg/dL (<150)
== END 2022-12-27 16:25 | disposition home or self-care (01) ==
LOC: NCHCN 16:24
PROVIDERS: PCP Family Medicine; Visit Provider Family Medicine
DX: Z00.00 Encounter for general adult medical examination without abnormal findings (principal); E11.9 Type 2 diabetes mellitus without complications; Z12.4 Encounter for screening for malignant neoplasm of cervix; Z11.51 Encounter for screening for human papillomavirus (HPV)
CPT/HCPCS: 80053; 80061; 88142; 87624

== ENCOUNTER 2023-01-27 02:05 | Outpatient (CLI) | payer OTHER, SELFPAY ==
--- NOTE | 2023-01-27 16:30 | DI.MAMMO_ITS ---
Exam(s) MAMMO SCREENING EXAM: MAMMO SCREENING CLINICAL HISTORY: SCREENING, Z12.31. TECHNIQUE: Bilateral full field digital CC and MLO mammographic images were obtained with 3D tomosyn thesis and utilizing computer aided detection (CAD). COMPARISON: Prior mammograms were reviewed. FINDINGS: There has been no significant change in the appearance and distribution of the fibroglandular tissue. There are no new spiculated masses nor malignant appearing microcalcification groups. There is no significant architectural distortion nor skin thickening-retraction. IMPRESSION: No radiographic evidence of malignancy. BI-RADS Category 1 - Negative Breast Density - Category A - Almost entirely fatty Breast density Category C or D implies that the patient has dense breast tissue. Dense breast tissue can make it harder to find cancer on a mammogram. Dense breast tissue is also associated with an incr eased risk of breast cancer. This information about the result of the mammogram report was provided to the patient to raise their awareness. Use this report when you speak with the patient about their risks for breast cancer, which includes their family history. At that time, you may recommend additional screening tests (Ultrasoun d or MRI) as these tests may add significant information. A negative radiographic report should not delay biopsy if a dominant or clinically suspicious mass is present. Up to ten percent of cancers are not identified on mammography. A negative report may reinforce clinical impression. Adenosis and dense breasts may obscure an underlying neoplasm. False positive reports average 6 to 10%. Patient will receive a letter notifying them of these results.
== END 2023-01-27 02:25 ==
LOC: DI 02:06
PROVIDERS: PCP Family Medicine; Visit Provider Family Medicine
DX: Z12.31 Encounter for screening mammogram for malignant neoplasm of breast (principal)
CPT/HCPCS: 77063; 77067

== ENCOUNTER → 2023-06-25 13:18 | Outpatient (CLI) | payer OTHER, SELFPAY ==
--- NOTE | 2023-06-25 | DI.RAD_ITS ---
Exam(s) XR TIB/FIB LT XR ANKLE LT COMPLETE EXAM: XR ANKLE LT COMPLETE and XR tib/fib LT CLINICAL HISTORY: LEFT LEG PAIN M79.605 LEFT ANKLE JOINT PAIN M25.572 TECHNIQUE: 2D digital imaging was performed of the left tib/fib and ankle. Five images were obtaine d. AP, lateral and oblique views were obtained. COMPARISON: There are no priors for comparison. FINDINGS: BONES: No acute fracture is present. No bony destructive lesion is seen. There is a tiny plantar calc aneal spur. There is enthesophyte at the posterior calcaneus. There is an enthesophyte at the espitia lar ligament insertion site. JOINTS:The ankle mortise is normally aligned. The visualized knee is unremarkable. SOFT TISSUE: Normal. IMPRESSION: No acute abnormality. DATA REPOSITORY: RADIATION DOSE DELIVERED:
== END ==
PROVIDERS: PCP Family Medicine; Visit Provider Nurse Practitioner Family
DX: M79.605 Pain in left leg (principal); M25.572 Pain in left ankle and joints of left foot
CPT/HCPCS: 73590; 73610

== ENCOUNTER → 2023-07-01 08:01 | Outpatient (BNVA) | payer OTHER, SELFPAY | PROVIDERS: PCP Family Medicine; Referring Provider Family Medicine; Visit Provider Nurse Practitioner Adult Health | DX: G43.109 Migraine with aura, not intractable, without status migrainosus (principal); G43.009 Migraine without aura, not intractable, without status migrainosus; E11.9 Type 2 diabetes mellitus without complications | CPT/HCPCS: 99213 ==

== ENCOUNTER → 2023-08-11 03:57 | Outpatient (CLI) | payer OTHER, SELFPAY ==
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
== END ==
PROVIDERS: PCP Family Medicine; Visit Provider Family Medicine
DX: M25.572 Pain in left ankle and joints of left foot (principal)
CPT/HCPCS: 73721

== ENCOUNTER → 2023-08-28 08:04 | Outpatient (BNVA) | payer OTHER, SELFPAY | PROVIDERS: PCP Family Medicine; Referring Provider Family Medicine | DX: S80.12XA Contusion of left lower leg, initial encounter (principal); S93.402A Sprain of unspecified ligament of left ankle, initial encounter; V86.55XA Driver of 3- or 4- wheeled all-terrain vehicle (ATV) injured in nontraffic accident, initial encounter; E11.9 Type 2 diabetes mellitus without complications | CPT/HCPCS: 99213 ==

== ENCOUNTER 2023-11-12 09:15 | Outpatient (REF) | payer OTHER, SELFPAY ==
[2023-11-12 14:27] LABS: Anion Gap 7.3 mmol/L (3-11); BUN 13 mg/dL (7-18); CO2 28.7 mmol/L (21.0-32.0); CREATININE 1.1 mg/dL (0.55-1.02); Calcium 9.4 mg/dL (8.5-10.1); Calculated LDL 104 mg/dL (<100); Chloride 105 mmol/L (98-107); Cholesterol 167 mg/dL (<200); Estimated GFR 57.52 (mL/min/1.73m2); Glucose 189 mg/dL (74-106); HDL Cholesterol 40 mg/dL (40-60); LDL CHOLESTEROL 101 mg/dL (<100); Potassium 4.1 mmol/L (3.5-5.1); Sodium 141 mmol/L (136-145); Triglyceride 119 mg/dL (<150)
== END 2023-11-12 09:16 | disposition home or self-care (01) ==
LOC: NCHCN 09:15
PROVIDERS: PCP Family Medicine; Visit Provider Family Medicine
DX: E11.9 Type 2 diabetes mellitus without complications (principal); E78.5 Hyperlipidemia, unspecified
CPT/HCPCS: 80048; 80061; 83721

== ENCOUNTER 2024-04-08 20:44 | Outpatient (REF) | payer OTHER, SELFPAY ==
[2024-04-08 17:03] LABS: TSH (W/Ref FT4) 1.15 uIU/mL (0.36-3.74)
== END 2024-04-08 20:45 | disposition home or self-care (01) ==
LOC: NCHCN 20:44
PROVIDERS: PCP Family Medicine; Visit Provider Family Medicine
DX: E11.9 Type 2 diabetes mellitus without complications (principal); E78.5 Hyperlipidemia, unspecified; E66.9 Obesity, unspecified
CPT/HCPCS: 84443

== ENCOUNTER → 2024-08-05 14:20 | Outpatient (BNVA) | payer OTHER, SELFPAY | PROVIDERS: PCP Family Medicine; Referring Provider Family Medicine; Visit Provider Nurse Practitioner Adult Health | DX: G43.709 Chronic migraine without aura, not intractable, without status migrainosus (principal); R20.2 Paresthesia of skin | CPT/HCPCS: 99214 ==

== ENCOUNTER 2024-08-20 15:07 | Emergency (ER) | payer OTHER, SELFPAY ==
[2024-08-20] VITALS (16 sets, daily range): BP systolic 122–154; BP diastolic 54–78; PULSE 82–106; RESP 14–25; TEMP 37.2; O2SAT 92–95
--- NOTE | 2024-08-20 15:00 | RT.EKG_ITS ---
APPROVED REPORT Exam: Resting ECG Reason for Exam: Dyspnea Patient Location: E HR:105 bpm ECG Measurements Heart Rate 105 AXIS OR 141 P 68 QRSd 79 QRS 67 QT 314 T 37 QTc 414 Conclusion Sinus tachycardia...rate> 99
--- NOTE | 2024-08-20 15:15 | DI.CT_ITS ---
Exam(s) CT HEAD WO EXAM: CT HEAD WO CLINICAL HISTORY: headache. TECHNIQUE: Imaging Protocol: Axial computed tomography images with coronal and sagittal reformatted images were created and reviewed COMPARISON: No exams were available for comparison FINDINGS: Ventricles and Extra axial spaces: Normal in size and morphology for the patient's age. Hemorrhage: None. Cerebral parenchyma: There is a fluid attenuation round lesion in the right basal ganglia which may r epresent an old lacunar infarct or a perivascular cyst. No evidence of an acute territorial infarct or mass effect. Midline shift: None. Brainstem/Cerebellum: Normal. Calvarium: Normal. Visualized Paranasal sinuses/Mastoids: Clear. Soft Tissues: Unremarkable. IMPRESSION: No acute intracranial process. RADIATION DOSE DELIVERED: 884.21mGy.cm Total DLP DATA REPOSITORY: All CT scans at this facility are submitted to the National Radiology Data Registry (NRDR) Dose Index Registry (DIR) with the [employer] (ACR). RADIATION OPTIMIZATION: All CT scans at this facility use at least one of these dose optimization te chniques: automated exposure control; mA and/or kV adjustment per patient size (includes targeted exa ms where dose is matched to clinical indication); or iterative reconstruction.
--- NOTE | 2024-08-20 15:15 | DI.CT_ITS ---
Exam(s) CT CHEST PE CTA EXAM: CT CHEST PE CTA CLINICAL HISTORY: dyspnea, pleuritic chest pain. TECHNIQUE: Imaging Protocol: Axial CT angiography was performed with multi-slice acquisition and mu lti-planar and/or 3D reconstructions. Computer aided detection (CAD) was utilized. CONTRAST MATERIAL: Intravenous: Omnipaque 350 contrast volume:100 mL COMPARISON: CR,XR XR CHEST 2V PA LATERAL from 03/28/[address] ABDOMEN PELVIS WO from 03/28/[address] NECK W from 12/12/2022 FINDINGS: Tracheobronchial tree: Patent where visualized. No bronchiectasis. Pulmonary parenchyma: There is an area of consolidation in the medial aspect of the left lung apex. The right lung is clear. No architectural distortion. Pulmonary Arteries: No evidence of filling defect to suggest pulmonary emboli. Mediastinum and Mari: There are mildly prominent lymph nodes seen in the mediastinum and left hilum w hich may be reactive. The esophagus is unremarkable. Visualized thyroid gland: Unremarkable. Pleura: There is a small left pleural effusion. No right pleural effusion. No pneumothorax. Heart: The heart is not dilated. No coronary artery calcifications are seen. No pericardial effusion. Aorta: Thoracic aorta non-dilated. No evidence of dissection. Atherosclerotic calcification is presen t. Upper abdomen: Unremarkable. Soft tissues: Unremarkable. Bones: Within normal limits for the patient's age. IMPRESSION: 1. No evidence of pulmonary embolism, thoracic aortic dissection or aneurysm. 2. Area of consolidation in the medial aspect of the left lung apex suspicious for pneumonia. Mildly enlarged reactive lymph nodes in the mediastinum and left hilum. A follow-up CT scan of the chest i s recommended after treatment to document complete resolution and to exclude any underlying etiology. RADIATION DOSE DELIVERED: 301.64mGy.cm Total DLP DATA REPOSITORY: All CT scans at this facility are submitted to the National Radiology Data Registry (NRDR) Dose Index Registry (DIR) with the [employer] (ACR). RADIATION OPTIMIZATION: All CT scans at this facility use at least one of these dose optimization te chniques: automated exposure control; mA and/or kV adjustment per patient size (includes targeted exa ms where dose is matched to clinical indication); or iterative reconstruction.
--- NOTE | 2024-08-20 15:28 | ED.GENADUL_ITS ---
Discharge Plan Disposition Patient Disposition: Home Condition: Stable Discharge Details Clinical Impression: Acute dyspnea, Headache, CAP (community acquired pneumonia) Primary Care Provider: Precious Arango ED Provider: Jose Echevarria Home Meds and New Rx's Prescriptions: New doxycycline hyclate 100 mg tablet 100 mg PO BID Qty: 14 0RF amoxicillin-pot clavulanate 875-125 mg tablet 1 tab PO BID Qty: 14 0RF Continued prochlorperazine maleate 5 mg tablet See Rx Instructions PO TID PRN (Reason: headaches) Qty: 30 3RF Patient Comments: none for a long time Rx Instructions: Take 1-2 tablets every 8 hours as needed for headaches. Aimovig Autoinjector 140 mg/mL auto-injector See Rx Instructions .ROUTE .COMPLEX Qty: 1 11RF Dose Instruction: INJECT 140 MG UNDER THE SKIN EVERY MONTH Rx Instructions: INJECT 140 MG UNDER THE SKIN EVERY MONTH calcium carbonate-vitamin D3 1 EACH tablet 1 ea PO DAILY citalopram 20 MG tablet 20 mg PO HS glipizide 10 mg tablet 10 mg PO BID cyanocobalamin (vitamin B-12) 1,000 mcg tablet 1,000 mcg PO DAILY pantoprazole [Protonix] 40 mg Tablet,Delayed Release (Dr/Ec) 40 mg PO HS Mounjaro 5 mg/0.5 mL pen injector 5 mg SUBCUT .weekly Discharge Instructions Additional Instructions: Your workup today showed that you have a pneumonia. Take the antibiotics as prescribed. You should have follow-up imaging with your primary care provider at some point to make sure that this pneumonia has resolved. If you feel more ill, have severe worsening shortness of breath or new symptoms such as persistent vomiting return to the emergency department for reevaluation HPI General Date/Time Provider Initiated Documentation: 08/20/24 15:11 . Limitations to Documentation: no limitations . Information obtained by: patient . History of Present Illness 58 year old F presents to the emergency department with the chief complaint of dyspnea, described as moderate, Patient started experiencing this day(s) (2) and it has been constant. No relieving factors improve symptom(s), No exacerbating factors reported . Patient notes cough, fever/chills and shortness of breath. Related Data Home Medications ?Medication ?Instructions ?Recorded ?Confirmed calcium 600 mg (as 1 ea PO DAILY 07/13/14 08/20/24 carbonate)-vitamin D3 5 mcg (200 unit) tablet citalopram 20 mg tablet 20 mg PO HS 11/11/16 08/20/24 pantoprazole 40 mg tablet,delayed 40 mg PO HS 01/01/19 08/20/24 release (Protonix) prochlorperazine maleate 5 mg See Rx Instructions PO TID PRN 07/01/23 08/20/24 tablet headaches #30 tabs cyanocobalamin (vitamin B-12) 1,000 mcg PO DAILY 08/19/23 08/20/24 1,000 mcg tablet glipizide 10 mg tablet 10 mg PO BID 08/19/23 08/20/24 erenumab-aooe 140 mg/mL See Rx Instructions .Route 08/05/24 08/20/24 subcutaneous auto-injector .COMPLEX #1 mL (Aimovig Autoinjector) amoxicillin 875 mg-potassium 1 tab PO BID #14 tabs 08/20/24 clavulanate 125 mg tablet doxycycline hyclate 100 mg tablet 100 mg PO BID #14 tabs 08/20/24 tirzepatide 5 mg/0.5 mL 5 mg subcut .weekly 08/20/24 08/20/24 subcutaneous pen injector (Gissel) Previous Rx's ?Medication ?Instructions ?Recorded prochlorperazine maleate 5 mg See Rx Instructions PO TID PRN 07/01/23 tablet headaches #30 tabs erenumab-aooe 140 mg/mL See Rx Instructions .Route 08/05/24 subcutaneous auto-injector .COMPLEX #1 mL (Aimovig Autoinjector) amoxicillin 875 mg-potassium 1 tab PO BID #14 tabs 08/20/24 clavulanate 125 mg tablet doxycycline hyclate 100 mg tablet 100 mg PO BID #14 tabs 08/20/24 Allergies Allergy/AdvReac Type Severity Reaction Status Date / Time Sulfa (Sulfonamide Allergy Severe Anaphylaxsi Unverified 08/20/24 15:14 Antibiotics) s sumatriptan AdvReac Severe Headache Unverified 08/20/24 15:14 ciprofloxacin (From Cipro) AdvReac Intermediate Diarrhea Unverified 08/20/24 15:14 ciprofloxacin HCl (From AdvReac Intermediate Diarrhea Unverified 08/20/24 15:14 Cipro) General Stated Complaint: SOB/SuddenOnset BRIAN: 2 Review of Systems All systems reviewed & are unremarkable except as noted in HPI and below Constitutional Constitutional: Reports chills, Reports fever(s), Reports headache(s) and Denies weakness ENT Ears, Nose, Mouth, and Throat: Reports headache(s) Cardiovascular Cardiovascular: Denies chest pain and Reports dyspnea Respiratory Respiratory: Reports cough and Reports dyspnea Gastrointestinal Gastrointestinal: Denies abdominal pain, Denies nausea and Denies vomiting Musculoskeletal Musculoskeletal: Denies joint swelling Neurologic Neurologic: Reports headache(s) and Denies weakness Exam Const General: no acute distress Orientation: alert HENMT Head: normal to inspection Ears: external ears normal General nose exam: external nose normal Mouth: moist mucous membranes Eyes General: appearance normal, both eyes and all related structures Neck Neck: normal visual inspection Resp Effort & Inspection: normal respiratory effort and able to speak in complete sentences Auscultation: clear to auscultation bilaterally Cardio Jugular venous pressure: no JVD Rate: regular rate Heart Sounds: no murmurs GI Palpation: soft and nontender Skin General skin exam: no rashes or lesions noted Neuro General: patient alert and patient oriented x3 Extrem General: normal to inspection Psych Mental Status: mental status grossly normal Course Vital Signs Vital signs: Vital Signs Temperature 37.2 C 08/20/24 15:09 Pulse 106 H 08/20/24 15:09 Respiratory Rate 18 08/20/24 15:09 Blood Pressure 122/78 08/20/24 15:09 Pulse Oximetry 93 08/20/24 15:09 Temperature 37.2 C 08/20/24 15:09 Temperature Source Oral 08/20/24 15:09 Pulse 106 H 08/20/24 15:09 Respiratory Rate 18 08/20/24 15:09 Blood Pressure 122/78 08/20/24 15:09 Blood Pressure Position Sitting 08/20/24 15:09 Pulse Oximetry 93 08/20/24 15:09 Oxygen Delivery Method Room Air 08/20/24 15:09 Oxygen Flow Rate 0 08/20/24 15:09 Pain Level 5 08/20/24 15:09 Medical Decision Making 58-year-old female who states she has a history of migraines, obstructive sleep apnea, GERD, restless leg syndrome comes in with several days of shortness of breath and cough along with subjective fevers and chills. She also has a pain in her head that is similar to her prior migraines per patient and not the worst of her life and slowly worsened throughout the day. Denies any vomiting, abdominal pain, rashes. She has no focal neurological deficits and is oriented x 4 speaking in full sentences in no distress. She says that when she takes a deep breath she has right-sided pleuritic chest pain with a dry cough. No cranial nerve deficits on exam. Pupils are equal and reactive to light. Lungs are clear. Unclear etiology for constitutional symptoms. Will check a CBC, CMP, procalcitonin, Fluvid. Given her headache though it seems more consistent with a migraine will obtain CT head to exclude hemorrhage. She has no meningismus on exam so suspicion for ASSAYER infection is low. Given her pleuritic chest pain and tachycardia will obtain CT of the chest to evaluate for PE and also infiltrates. Patient's labs show white count of 17 otherwise no significant changes from baseline, head CT negative, CTA shows no PE but does show left-sided infiltrate. Given her cough suspect she had to have a pneumonia. Will treat with Augmentin and doxycycline. She feels significantly better and has no headache and still has no meningismus so do not feel LP indicated. She is stable for discharge and will follow-up with her PCP, return precautions given Differential Diagnosis Differential Diagnosis: covid, flu, PE, migraine, campus recruiter infection Medical Records Medical records reviewed: Yes I reviewed the patient's medical records. Lab Data Lab results reviewed: Yes I reviewed the patient's lab results. ECG Data Attestation: I personally reviewed and interpreted this ECG (s) as follows: Prior ECG tracings: available for review Interpretation: sinus tachycardia, rate of 105, pr 141 no stemi Quality:SDOH Health Related Social Needs: No Data to Display [facility] All Active Problems (Updated 08/20/24 @ 18:01 by Jose Echevarria MD) CAP (community acquired pneumonia) (Acute) Headache (Acute) Acute dyspnea (Acute) Right hand paresthesia (Acute) Left ankle sprain (Acute ~05/2023) Contusion of left lower leg (Acute ~05/2023) Anxiety and depression (Chronic) Renal insufficiency (Chronic) Lymphadenopathy (Acute) Abnormal auditory perception (Acute) Migraine headache with aura (Acute) Headache, chronic migraine without aura (Acute) USHA (obstructive sleep apnea) (Chronic) History of carpal tunnel surgery of right wrist (Acute) DOS: 09/08/18 Dr. Noble Right carpal tunnel syndrome (Acute) Diabetes (Chronic) Colon cancer screening (Acute) Medical History History of tobacco use Social History Smoking/Tobacco Use Status: Former Tobacco Use Smoking risk assessment performed?: Yes Alcohol Intake: current Alcohol Intake frequency: a few times a month Drug use: Never Substance use type: does not use current occupation: [employer] Do you feel safe at home: Yes Do you feel safe in your relationship?: Yes
[2024-08-20 16:03] LABS: BE (Venous) 5 mmol/L (-2-3); HCO3 (Venous) 29 mmol/L (23-28); O2 Sat (Venous) 83 %; TCO2 (Venous) 26 mmol/L (24-29); pCO2 (Venous) 43 mmHg (41-51); pH (Venous) 7.44 (7.31-7.41); pO2 (Venous) 44 mmHg
[2024-08-20] MEDS: diphenhydrAMINE 50 MG/ML VIAL 25 MG IVP (16:04)
[2024-08-20 16:05] LABS: HCT 36.4 % (36.0-46.0); HGB 12.2 g/dL (11.2-15.7); MCH 30.5 pg (27.0-33.0); MCHC 33.5 % (32.0-36.0); MCV 91 fL (80-95); MPV 9.8 fL (8.0-11.0); Platelet Count 366 10^3/uL (130-400); RDW 12.4 % (11.7-14.6); RDW-SD 41.2 fL; WBC 17.67 10^3/uL (4.4-10.8)
[2024-08-20] MEDS: Ketorolac 15 MG/ML VIAL IVP (16:05)
[2024-08-20] MEDS: Prochlorperazine 10 MG/2 ML VIAL IVP (16:05)
[2024-08-20 16:08] LABS: Bilirubin Small (Negative); Blood Negative (Negative); Clarity Sl Cloudy (Clear); Glucose Negative (Negative); Ketones Negative (Negative); Leukocyte Esterase Negative (Negative); Nitrite Negative (Negative)
[2024-08-20 16:30] LABS: ALT 41 U/L (14-59); AST 25 U/L (15-37); Albumin 3.2 g/dL (3.4-5.0); Alkaline Phosphatase 81 U/L (46-116); Anion Gap 10.1 mmol/L (3-11); BUN 9 mg/dL (7-18); CO2 28.9 mmol/L (21.0-32.0); CREATININE 1.1 mg/dL (0.55-1.02); Chloride 101 mmol/L (98-107); Estimated GFR 57.52 (mL/min/1.73m2); Glucose 134 mg/dL (74-106); Magnesium 1.7 mg/dL (1.8-2.4); Potassium 3.6 mmol/L (3.5-5.1); Sodium 140 mmol/L (136-145); TSH (W/Ref FT4) 0.71 uIU/mL (0.36-3.74); Total Protein 8.3 g/dL (6.4-8.2)
[2024-08-20 16:32] LABS: Troponin I < 4 ng/L (<or=51)
[2024-08-20 16:45] LABS: Diff Comment Manual Differential
[2024-08-20 16:46] LABS: RBC Morphology Normal
[2024-08-20 16:49] LABS: Absolute Eosinophil Count 0.18 10^3/uL (0.0-0.7); Absolute Lymphocyte Count 3.18 10^3/uL (1.2-3.4); Absolute Monocyte Count 1.94 10^3/uL (0.1-0.8); Absolute Neutrophil Count 12.37 10^3/uL (1.2-6.7); Atypical Lymphocytes % 6 %; Bands % 0 %
[2024-08-20 16:50] LABS: Procalcitonin < 0.1 ng/mL
[2024-08-20] MEDS: Omnipaque 350 MG/ML 100 ML BTL IJ (17:12)
[2024-08-20] MEDS: Normal Saline - Diluent 50 ML VIAL IJ (17:13)
[2024-08-20] MEDS: Amoxicillin 875/Clav. 125 TAB PO (18:03)
[2024-08-20] MEDS: Doxycycline Hyclate 100 MG CAP PO (18:04)
--- NOTE | 2024-08-21 08:04 | NUR.NOTE ---
Access chart to reconcile EKG orders with EKG's in [facility]. Duplicate order cancelled. Nursing Note:
== END 2024-08-20 18:15 | disposition home or self-care (01) ==
PROVIDERS: Emergency Provider Emergency Medicine; PCP Family Medicine
DX: R06.00 Dyspnea, unspecified (principal); R51.9 Headache, unspecified; M54.2 Cervicalgia
CPT/HCPCS: 71275; 80053; 82805; 84145; 93005; 96374; 96375; 99285; 70450; 81003; 83735; 84443; 84484; 85025; 93010; 99284; J0780; J1200; J1885; J3490

== ENCOUNTER 2024-09-06 13:52 | Outpatient (REF) | payer OTHER, SELFPAY ==
[2024-09-03 21:50] LABS: Abs Immature Grans 0.06 10^3/uL (0.0-0.06); Absolute Basophil Count 0.08 10^3/uL (0.0-0.2); Absolute Eosinophil Count 0.38 10^3/uL (0.0-0.7); Absolute Lymphocyte Count 3.17 10^3/uL (1.2-3.4); Basophils % 0.6 %; HCT 41.7 % (36.0-46.0); HGB 13.3 g/dL (11.2-15.7); Immature Grans % 0.5 %; Lymphocytes % 24.9 %; MCH 29.7 pg (27.0-33.0); MCHC 31.9 % (32.0-36.0); MCV 93 fL (80-95); MPV 10.9 fL (8.0-11.0); Monocytes % 6.8 %; Neutrophils % 64.2 %; Platelet Count 312 10^3/uL (130-400); RBC 4.48 10^6/uL (3.93-5.22); RDW 12.9 % (11.7-14.6); RDW-SD 43.9 fL; WBC 12.72 10^3/uL (4.4-10.8)
[2024-09-03 21:51] LABS: Absolute Monocyte Count 0.86 10^3/uL (0.1-0.8); Absolute Neutrophil Count 8.17 10^3/uL (1.2-6.7)
[2024-09-05 06:54] LABS: Legionella Ag Detection Urine Negative (Negative)
== END 2024-09-06 13:53 | disposition home or self-care (01) ==
LOC: NCHCN 13:52
PROVIDERS: PCP Family Medicine; Visit Provider Family Medicine
DX: R06.09 Other forms of dyspnea (principal)
CPT/HCPCS: 87449; 85025

== ENCOUNTER 2024-11-15 01:32 | Outpatient (CLI) | payer OTHER, SELFPAY ==
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
== END 2024-11-15 01:52 ==
PROVIDERS: PCP Family Medicine; Visit Provider Family Medicine
DX: M79.605 Pain in left leg (principal)
CPT/HCPCS: 73590

== ENCOUNTER 2025-02-08 12:57 | Outpatient (REF) | payer OTHER, SELFPAY ==
[2025-02-08 15:08] LABS: COMMENT (LAB VIEW ONLY) 284.35 mg/dL; Microalb ug/mg Crea 2.9 ug/mg Cr
== END 2025-02-08 12:58 | disposition home or self-care (01) ==
LOC: NCHCN 12:57
PROVIDERS: PCP Family Medicine; Visit Provider Family Medicine
DX: E11.9 Type 2 diabetes mellitus without complications (principal)
CPT/HCPCS: 82043; 82570

== ENCOUNTER 2025-02-08 15:09 | Outpatient (CLI) | payer OTHER, SELFPAY ==
[2025-02-08 17:47] LABS: ALT 36 U/L (14-59); AST 20 U/L (15-37); Albumin 3.6 g/dL (3.4-5.0); Alkaline Phosphatase 86 U/L (46-116); Anion Gap 7.2 mmol/L (3-11); BUN 12 mg/dL (7-18); Bilirubin, Total 0.4 mg/dL (0.2-1.0); CO2 28.8 mmol/L (21.0-32.0); CREATININE 1.2 mg/dL (0.55-1.02); Calcium 9.3 mg/dL (8.5-10.1); Chloride 105 mmol/L (98-107); Glucose 147 mg/dL (74-106); Potassium 3.9 mmol/L (3.5-5.1); Sodium 141 mmol/L (136-145); Total Protein 7.2 g/dL (6.4-8.2)
[2025-02-10 09:41] LABS: Hepatitis C Ab w Rflx HCV PCR Negative (Negative)
[2025-02-10 10:01] LABS: HIV-1/2 Ag & Ab Screen Negative (Negative)
== END 2025-02-08 15:10 | disposition home or self-care (01) ==
PROVIDERS: PCP Family Medicine; Visit Provider Family Medicine
DX: N18.31 Chronic kidney disease, stage 3a (principal); Z11.4 Encounter for screening for human immunodeficiency virus [HIV]; Z11.59 Encounter for screening for other viral diseases
CPT/HCPCS: 36415; 80053; 86803; 87389

== ENCOUNTER 2025-04-11 00:08 | Outpatient (CLI) | payer OTHER, SELFPAY ==
--- NOTE | 2025-04-11 | DI.MAMMO_ITS ---
Exam(s) MAMMO SCREENING EXAM: MAMMO SCREENING CLINICAL HISTORY: Z12.31 Screening TECHNIQUE: Bilateral full field digital CC and MLO mammographic images were obtained with 3D tomosynthesis and utilizing computer aided detection (CAD). COMPARISON: Comparison is made with prior examinations. FINDINGS: Masses/Architectural Distortion: No suspicious masses or areas of architectural distortion are present. Microcalcifications: No suspicious pleomorphic-type are seen. Skin Thickening/Nipple Retraction: None. IMPRESSION: 1. No significant interval change with no specific features of malignancy noted. 2. Unless there is more urgent need, screening mammography is recommended, as per [place] [employer] guidelines. BI-RADS Category 1 - Negative Breast Density - Category A - The breast are almost entirely fatty. Breast density Category C or D implies that the patient has dense breast tissue. Dense breast tissue can make it harder to find cancer on a mammogram. Dense breast tissue is also associated with an increased risk of breast cancer. This information about the result of the mammogram report was provided to the patient to raise their awareness. Use this report when you speak with the patient about their risks for breast cancer, which includes their family history. At that time, you may recommend additional screening tests (Ultrasound or MRI) as these tests may add significant information. A negative radiographic report should not delay biopsy if a dominant or clinically suspicious mass is present. Up to ten percent of cancers are not identified on mammography. A negative report may reinforce clinical impression. Adenosis and dense breasts may obscure an underlying neoplasm. False positive reports average 6 to 10%. Patient will receive a letter notifying them of these results.
== END 2025-04-11 00:28 ==
LOC: DI 00:08
PROVIDERS: PCP Family Medicine; Visit Provider Family Medicine
DX: Z12.31 Encounter for screening mammogram for malignant neoplasm of breast (principal)
CPT/HCPCS: 77063; 77067

== ENCOUNTER 2025-06-28 16:29 | Outpatient (CLI) | payer OTHER, SELFPAY ==
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
== END 2025-06-28 16:49 ==
LOC: DI 16:29
PROVIDERS: PCP Family Medicine; Visit Provider Family Medicine
DX: S69.91XA Unspecified injury of right wrist, hand and finger(s), initial encounter (principal); X58.XXXA Exposure to other specified factors, initial encounter
CPT/HCPCS: 73140